=== PATIENT | male | born 1970 ===

== ENCOUNTER 2021-07-15 08:26 | Inpatient (IN) ==
[2021-07-15] MEDS ORDERED: Heparin 1,000 UNITS/500 mL 500 ML ONE (09:01)
[2021-07-15] MEDS ORDERED: *HR* Heparin 10,000 UNIT/10 ML VIAL ONE (09:01)
[2021-07-15] MEDS ORDERED: ISOVUE-370 200 ML INFUS..BTL ONE (09:01)
[2021-07-15] MEDS ORDERED: 0.9 % Sodium Chloride 2,000 ML ONE (09:02)
[2021-07-15] MEDS ORDERED: Nitroglycerin 1,000 MCG/5 ML VIAL IV ONE (09:02)
[2021-07-15] MEDS ORDERED: *HR* FentaNYL (PF) 100 MCG/2 ML VIAL ONE (09:21)
[2021-07-15] MEDS ORDERED: *HR* Midazolam HCl 2 MG/2 ML VIAL ONE (09:21)
[2021-07-15] MEDS ORDERED: Perflutren Lipid Microsphere 1.3 ML in 0.9 % Sodium Chloride 8.7 ML IVP PRN (10:22)
[2021-07-15] MEDS ORDERED: Metoprolol XL (24 HR) Succ 25 MG TAB.ER.24H PO SCH (10:30)
[2021-07-15] MEDS: *HR* Ticagrelor 90 MG TABLET PO SCH (19:55)
[2021-07-16] MEDS: *HR* Ticagrelor 90 MG TABLET PO SCH ×2 (07:57→21:10)
[2021-07-16 08:25] LABS: Basophils # 0.1 K/mcL (0.0-0.2); Eosinophils # 0.1 K/mcL (0.0-0.6); Eosinophils % 1.9 %; Hematocrit 41.6 % (37.5-50.1); Hemoglobin 14.3 g/dL (12.9-16.9); Immature Granulocytes % 0.3 % (0-4); Lymphocytes # 1.4 K/mcL (0.6-4.6); Mean Corpuscular HGB Conc 34.4 g/dL (31.6-35.5); Mean Platelet Volume 10.4 fL (9.4-12.4); Monocytes # 0.9 K/mcL (0.0-1.3); Monocytes % 13.2 %; Neutrophils # 4.2 K/mcL (1.6-8.9); Platelet Count 223 K/mcL (140-400); Red Cell Distribution Width 12.4 % (11.5-14.5); Segmented Neutrophils % 62.6 %; White Blood Count 6.8 K/mcL (4.3-11.1)
[2021-07-16 08:43] LABS: BUN/Creatinine Ratio 16 (6-26); Blood Urea Nitrogen 11 mg/dL (6-20); Carbon Dioxide 25 mEq/L (23-29); Chloride 104 mEq/L (98-107); Glucose 97 mg/dL (70-105); Osmolality,Calculated 279 (280-300); Potassium 4.1 mEq/L (3.5-5.1); Sodium 135 mEq/L (136-145); Troponin I 3.24 ng/mL (< 0.04); eGFR For African Americans > 60 (> 60); eGFR For Non-African Americans > 60 (> 60)
[2021-07-16] MEDS ORDERED: Aspirin 81 MG TAB.CHEW PO SCH (09:00)
[2021-07-16] MEDS: Famotidine 20 MG TABLET PO SCH (21:10)
[2021-07-17 01:33] VITALS: O2SAT 98
[2021-07-17] MEDS ORDERED: Aspirin 81 MG TAB.CHEW PO SCH (09:00)
[2021-07-17] MEDS ORDERED: Metoprolol XL (24 HR) Succ 25 MG TAB.ER.24H PO SCH ×2 (09:00)
[2021-07-17] MEDS: Famotidine 20 MG TABLET PO SCH (09:04)
[2021-07-17] MEDS: *HR* Ticagrelor 90 MG TABLET PO SCH (09:05)
[2021-07-17 11:23] VITALS: BP 125/80; PULSE 54; TEMP 98.3
== END 2021-07-17 11:45 | disposition home or self-care (01) | DRG 247 ==
LOC: ICNU 10:53 → 2NNU 07-16 12:42
PROVIDERS: ADMIT Internal Medicine Cardiovascular Disease; ATTEND Internal Medicine Cardiovascular Disease